=== PATIENT | male | born 1950 | race Caucasian/White ===

== ENCOUNTER → 2023-03-10 11:41 | Outpatient (CLI) | payer MEDICARE, OTHER, SELFPAY ==
[2023-03-10 12:43] LABS: Add Manual Diff / Slide Review NO; Basophils Absolute Auto 100 /uL (0-100); Basophils Percent Auto 1.3 % (0-2); Eosinophils Absolute Auto 200 /uL (0-450); Eosinophils Percent Auto 2.3 % (2-4); Hematocrit 41.5 % (41-53); Hemoglobin 14.4 g/dL (13.5-17.5); Lymphocytes Absolute Auto 1600 /uL (1100-4500); Mean Corpuscular HGB Conc 34.7 % (30-36); Mean Corpuscular Hemoglobin 30.2 PG (26-34); Monocytes Absolute Auto 800 /uL (0-900); Monocytes Percent Auto 10.8 % (3-14); Neutrophils Absolute Auto 4700 /uL (1500-7000); Neutrophils Percent Auto 63.6 % (50-75); Platelet Count 236 X10^3/uL (150-400); Red Blood Cell Count 4.77 X10^6/uL (4.5-5.9); Red Cell Distribution Width 12.9 % (11.6-14.8); White Blood Cell Count 7.3 X10^3/uL (4.5-11.0)
[2023-03-10 13:17] LABS: Alanine Aminotransferase 17 IU/L (<50); Albumin 4.1 g/dL (3.5-5.0); Albumin Globulin Ratio 1.4 (1.0-2.8); Alkaline Phosphatase 79 U/L (38-126); Aspartate Aminotransferase 29 IU/L (17-59); BUN Creatinine Ratio 18.9 (6-22); Blood Urea Nitrogen 17 mg/dL (9-20); Calcium 9.4 mg/dL (8.4-10.2); Carbon Dioxide 31 mmol/L (22-32); Chloride 101 mmol/L (98-107); Cholesterol 117 mg/dL (140-199); Estimated Glomerular Filt Rate > 60 mL/min (>60); Glucose 89 mg/dL (80-110); HDL Cholesterol 38 mg/dL (40-60); HEMOLYSIS < 15 (0-50); LDL Cholesterol Calculated 63 mg/dL (<100); Potassium 4.7 mmol/L (3.4-5.1); Sodium 138 mmol/L (137-145); Total Protein 7.1 g/dL (6.3-8.2); Triglycerides 81 mg/dL (35-150)
[2023-03-10 13:57] LABS: Prostate Specific Antigen Scrn < 0.064 ng/mL (0.1-4.0)
[2023-03-10 15:59] LABS: Hep C Virus Ab w/Reflex Quant NEGATIVE s/c (NEGATIVE)
== END ==
PROVIDERS: PCP Family Medicine; Referring Provider Family Medicine; Visit Provider Family Medicine
DX: Z00.00 Encounter for general adult medical examination without abnormal findings (principal); I25.10 Atherosclerotic heart disease of native coronary artery without angina pectoris; Z12.5 Encounter for screening for malignant neoplasm of prostate; E03.9 Hypothyroidism, unspecified; Z95.1 Presence of aortocoronary bypass graft; R13.10 Dysphagia, unspecified; Z90.79 Acquired absence of other genital organ(s); Z11.59 Encounter for screening for other viral diseases
CPT/HCPCS: 36415; 80053; 80061; 84443; 85025; 86803; G0103

== ENCOUNTER → 2024-03-15 11:45 | Outpatient (CLI) | payer MEDICARE, OTHER, SELFPAY ==
--- NOTE | 2024-03-15 11:50 | DI.RAD.S_ITS ---
PROCEDURE: XR HIP W PEL IF DONE LT 2V INDICATIONS: Lt hip pain TECHNIQUE: AP pelvis with lateral view(s) of the left hip(s). COMPARISON: None. FINDINGS: Bones: No fractures or dislocations. Moderate bilateral hip joint osteoarthritic changes are seen with superior joint space narrowing, subchondral sclerosis and marginal osteophyte formation. No evidence of avascular necrosis of femoral head. Pelvic ring appears intact. No suspicious bony lesions. Soft tissues: The visualized bowel gas pattern is normal. No suspicious soft tissue calcifications. IMPRESSION: No acute pelvic or hip fracture. Moderate bilateral hip joint osteoarthritis. No evidence of avascular necrosis of femoral head. Dictated by: Alhaji Villarreal M.D. on 03/15/2024 at 14:33 Approved by: Alhaji Villarreal M.D. on 03/15/2024 at 14:34
[2024-03-15 13:36] LABS: Alanine Aminotransferase 22 IU/L (<50); Albumin 4.4 g/dL (3.5-5.0); Albumin Globulin Ratio 1.7 (1.0-2.8); Alkaline Phosphatase 97 U/L (38-126); Aspartate Aminotransferase 35 IU/L (17-59); Bilirubin Total 0.9 mg/dL (0.2-1.3); Blood Urea Nitrogen 16 mg/dL (9-20); Calcium 9.3 mg/dL (8.4-10.2); Carbon Dioxide 28 mmol/L (22-32); Chloride 104 mmol/L (98-107); Cholesterol 127 mg/dL (140-199); Estimated Glomerular Filt Rate > 60 mL/min (>60); Globulin 2.6 g/dL (1.7-4.1); Glucose 87 mg/dL (80-110); HDL Cholesterol 44 mg/dL (40-60); HEMOLYSIS < 15 (0-50); LDL Cholesterol Calculated 62 mg/dL (<100); Potassium 4.7 mmol/L (3.4-5.1); Sodium 141 mmol/L (137-145); Triglycerides 106 mg/dL (35-150)
[2024-03-15 14:07] LABS: Prostate Specific Antigen Scrn < 0.064 ng/mL (0.1-4.0)
[2024-03-20 09:39] LABS: MuSK Antibodies <1.0 U/mL (.)
== END ==
LOC: LAB 11:47 → RAD 11:49
PROVIDERS: PCP Family Medicine; Referring Provider Family Medicine; Visit Provider Family Medicine
DX: M16.0 Bilateral primary osteoarthritis of hip (principal); E03.9 Hypothyroidism, unspecified; Z12.5 Encounter for screening for malignant neoplasm of prostate; R13.10 Dysphagia, unspecified; Z00.00 Encounter for general adult medical examination without abnormal findings; C61 Malignant neoplasm of prostate; M25.552 Pain in left hip; I25.10 Atherosclerotic heart disease of native coronary artery without angina pectoris
CPT/HCPCS: 36415; 73502; 80053; 80061; 83519; 84443; G0103

== ENCOUNTER 2024-05-12 08:17 | Day surgery (SDC) | payer MEDICARE, OTHER, SELFPAY ==
[2024-05-12] VITALS (10 sets, daily range): BP systolic 80–133; BP diastolic 43–69; PULSE 45–50; RESP 14–16; TEMP 36.2–36.3; O2SAT 96–100
--- NOTE | 2024-05-12 | PATH_ITS ---
[facility] Accession Number: [id number] No. of containers..01 Tissue . 01 Material submitted: . esophagus - ESOPHAGUS . 01 Clinical history: . R/O EOE . 01 Diagnosis: A. 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 Negative for increased intraepithelial eosinophils, dysplasia, or malignancy. [facility] 05/13/2024 1520 Local . 01 Electronically signed: . Oskar Schwartz MD, Pathologist NPI- [id number] . 01 Gross description: . ESOPHAGUS: Received in formalin is 1 fragment(s) of goodman, soft tissue measuring 0.3 x 0.2 x 0.2 cm submitted entirely in 1 cassette(s) /DENNISE 05/13/2024 0010 Local . 01 Pathologist provided ICD-10: R13.10 . 01 CPT . 839955 Specimen Comment: A courtesy copy of this report has been sent to [phone] Performed at: [address], [place], [place] [id number] MD Russell Cuenca MD Phone: [phone]
[2024-05-12] MEDS: LACTATED RINGERS 1,000 ML 42 ML IV (08:28)
--- NOTE | 2024-05-12 09:30 | PM.PREOP ---
Pre-operative Note COVID-19 COVID-19 status: Not tested Interval Note History & Physical reviewed/Exam performed by Physician: Yes Changes to H&P: No ASA Class (for procedural sedation): II
--- NOTE | 2024-05-12 09:34 | P.OP.EGD_ITS ---
Operative Date/Time/Diagnoses Date of procedure: 05/12/24 Pre-op diagnosis: See indication and findings Procedure & Clinicians Study performed: EGD Same procedure as scheduled: Yes Indications: Upper substernal dysphagia Surgeon: Chetna Hdz Procedure Notes Procedure in detail: After informed consent was obtained the patient was placed in left lateral decubitus position. The video upper scope was placed into the oropharynx and with the patient's help swallowed into the esophagus. The esophagus stomach and duodenal carefully examined. On withdrawal, retroflexed view the GE junction performed. The scope was removed. The patient tolerated procedure well. Blood loss none Complications none Sedation mac Findings 1. Normal upper and middle esophagus. Biopsies taken to rule out eosinophilic esophagitis though typical markings are not necessarily present 2. Mild Schatzki's ring documented with photographs. On withdrawal 51 Prydeinig Savary dilator was used without difficulty 3. Normal stomach 4. Normal duodenal bulb and sweep Lab patient should call me in 1-2 months to let me know how he is doing. I suspect that he will be significantly improved.
== END 2024-05-12 11:00 | disposition home or self-care (01) ==
PROVIDERS: PCP Family Medicine; Referring Provider Internal Medicine Gastroenterology; Visit Provider Internal Medicine Gastroenterology
PROC: 0DJ08ZZ Inspection of Upper Intestinal Tract, Via Natural or Artificial Opening Endoscopic (ICD-10-PCS; CPT 43248; principal; 2024-05-12 09:30)
DX: R13.10 Dysphagia, unspecified (principal); K22.2 Esophageal obstruction
CPT/HCPCS: 43248; 43239; J2704